=== PATIENT | male | born 2005 | race Caucasian/White ===

== ENCOUNTER 2024-04-19 20:27 | Emergency (ER) | payer OTHER, SELFPAY ==
[2024-04-19 20:29] VITALS: BP 148/67; PULSE 89; RESP 14; TEMP 36.3; O2SAT 97
[2024-04-19 20:32] VITALS: BMI 27.1
--- NOTE | 2024-04-19 21:46 | EDS_ITS ---
HPI History of Present Illness Chief Complaint: Laceration Narrative Narrative: 18-year-old male who denies significant past medical history presents with laceration just above his right medial eyebrow. He was at work, and was trying to gauge flanges. The metal flange that he was gauging got stuck on the machine. He was supposed to tap it lightly to remove it. However, he must of tapped a little too hard and it flew up and hit him in the face. He was wearing safety goggles. He sustained a star-shaped laceration just above his right medial eyebrow. He denies loss of consciousness, no seeing of stars, no other injury. He might have a slight headache, but does not take blood thinners. States the area where he sustained the laceration is sore. He is unsure of his last tetanus immunization. [facility] Medical History no medical history Home Medications ?Medication ?Instructions ?Recorded ?Last Taken ?Type NK 04/19/24 Unknown History Allergy/AdvReac Type Severity Reaction Status Date / Time No Known Allergies Allergy Verified 04/19/24 20:32 Social History Smoking Status: Never smoker ROS ROS ED ROS Narrative Constitutional: No fever, no chills. HEENT: No sore throat. No neck pain. No loss of vision. No rhinorrhea. Cardiovascular: No chest pain. No palpitations. No pedal edema. Respiratory: No cough, no shortness of breath. Abdominal: No abdominal pain. No nausea. No vomiting. Genitourinary: No dysuria. No hematuria. Musculoskeletal: No myalgias. No arthralgias. Neurologic: Minimal headaches. No dizziness. No lightheadedness. Skin: No rash. No change in color. Laceration just above right medial eyebrow. Psychiatric: No depression. No anxiety. EXAM Physical Exam Narrative Exam Narrative: GCS 15. ABCs are intact. Regular rate and rhythm. Lungs clear to auscultation bilaterally. Abdomen soft nontender with normoactive bowel sounds. Neurological examination shows him to be awake, alert, and oriented x 3. Nonfocal, nonlateralizing. HEENT examination does show star-shaped superficial laceration just above his medial right eyebrow, no active bleeding. Const Vital Signs: 04/19/24 20:29 Temperature 97.4 F L Temperature Source Temporal Pulse Rate 89 Respiratory Rate 14 Blood Pressure 148/67 H Blood Pressure Mean 94 Pulse Ox 97 Oxygen Delivery Method Room Air MDM MDM MDM Narrative Medical decision making narrative: Differential diagnosis is not applicable. I discussed closure of the superficial laceration with the patient. It was not felt that suturing is indicated and he declined this. His wound will be cleansed and either Steri- Strip or Band-Aid will be applied. Additionally, I do not feel that CT of the brain is indicated as he has a normal neurological examination. He may have slight closed head injury for which she can take [id number] medications. Tetanus immunization was updated. At this point in time, I do feel that he can be discharged to follow-up with the [facility]. He was given the day off work today for the rest of his shift, the day of the injury. He will return to work with instructions to keep the area clean and dry. I feel he can be discharged safely home with follow-up. Return instructions to the emergency department were reviewed. Disposition is discharged home in stable condition. Discharge Plan Triage Chief Complaint: Laceration ED Provider: Mateo Hernandez Dx/Rx/DC Orders Clinical Impression: Closed head injury, Forehead laceration Instructions: ED Head Injury (Adult), ED Laceration Superficial No Stitch Prescriptions: No Action NK Primary Care Provider: Care Physician,No Primary Referrals: NOT,DEFINED [Non-Staff] - [facility] [Non-Staff] - 1 Day Activity Restrictions/Additional Instructions: Follow-up with the [facility] regarding your work-related injury. Print Language: Maldivian Disposition Disposition: Home, Self Care
[2024-04-19] MEDS: Diphth,Pertuss(Acell),Tet Vac 0.5 ML Vial IM (21:51)
[2024-04-19 22:19] VITALS: BP 135/89; PULSE 91; RESP 18; TEMP 36.2; O2SAT 97
== END 2024-04-19 22:20 | disposition home or self-care (01) ==
PROVIDERS: Emergency Provider Emergency Medicine; Visit Provider Emergency Medicine
DX: S01.81XA Laceration without foreign body of other part of head, initial encounter (principal); Y99.0 Civilian activity done for income or pay; X58.XXXA Exposure to other specified factors, initial encounter
CPT/HCPCS: 90715; 99282